=== PATIENT | male | born 1955 | race Caucasian/White ===

== ENCOUNTER 2017-02-11 09:39 | Inpatient (IN) | payer OTHER ==
[2017-02-11] MEDS ORDERED: HYDROmorphone* 1 MG/ML 1 ML SYR IV ONE (10:11)
[2017-02-11] MEDS ORDERED: NS 0.9% 1000 ML* 1,000 ML IV ONE (10:11)
[2017-02-11] MEDS ORDERED: Ondansetron INJ* 2 MG/ML VIAL IV ONE (10:11)
[2017-02-11 10:41] LABS: Hematocrit 47 % (42-52); Hemoglobin 15.5 g/dl (14.0-18.0); Mean Corpuscular HGB Conc 33 g/dl (31-36); Mean Corpuscular Hemoglobin 28 pg (27-31); Mean Corpuscular Volume 84 fL (80-94); Mean Platelet Volume 8 um3 (7.4-10.4); Red Blood Count 5.58 10^6/ul (4.0-5.4); Red Cell Distribution Width 13 % (10.5-15); White Blood Count 12.7 10^3/ul (3.5-10.8)
--- NOTE | 2017-02-11 10:45 | RAD ---
INDICATION: Left flank abdominal pain. COMPARISON: Comparison is made with a prior CT of the abdomen and pelvis from June 17, 2013. Correlation is also made with an exam from June 14, 2013. TECHNIQUE: A CT scan of the abdomen and pelvis was performed without intravenous or oral contrast. Contiguous axial sections were obtained from the lung bases through the symphysis pubis. Images were reconstructed in the coronal and sagittal planes. FINDINGS: The lung bases appear clear. No pleural effusion is present. The liver is normal in size and decreased in attenuation consistent with fatty infiltration which appears similar to the prior study. There is a solitary coarse calcification in the upper portion of the left hepatic lobe which is unchanged. No calcified gallstones are seen. The spleen is normal in size without focal abnormality on this noncontrast study. The pancreas appears to be within normal limits. The adrenal glands and kidneys are normal in size. No renal calculi or hydronephrosis is seen. No ureteral or bladder calculi are seen. The aorta is normal in caliber with mild calcific plaque present. No significant enlarged retroperitoneal lymph nodes are seen. The stomach is mildly distended. There is moderate distention of the proximal and mid small bowel. There appears to be a transition point in the anterior left lower quadrant. There is slight prominence of the adjacent mesenteric vessels. The distal small bowel and colon are nondistended. Air is present within the colon. There are multiple surgical clips present within the left mid abdomen and left lower quadrant. The appendix appears to be within normal limits. There is mild descending and sigmoid diverticulosis without evidence for diverticulitis. No free intraperitoneal air or fluid is seen. No significant focal osseous abnormality is seen. IMPRESSION: 1. MODERATE TO HIGH-GRADE PARTIAL MID SMALL BOWEL OBSTRUCTION SIMILAR IN APPEARANCE TO THE PRIOR STUDY FROM JUNE 14, 2013. 2. HEPATIC STEATOSIS.
[2017-02-11 10:53] LABS: Albumin 4.3 g/dL (3.2-5.2); BUN/Creatinine Ratio 15.9 (8-20); C Reactive Protein 4.19 mg/L (< 5.00); Calcium 9.6 mg/dL (8.6-10.3); EGFR African American 122.4 (>60); EGFR Non-African American 95.2 (>60); Globulin 3.4 g/dL (2-4); Potassium 4.1 mmol/L (3.5-5.0); Total Bilirubin 0.9 mg/dL (0.2-1.0); Total Protein 7.7 g/dL (6.4-8.9)
[2017-02-11] MEDS ORDERED: HYDROmorphone* 1 MG/ML 1 ML SYR IV PRN (14:02)
--- NOTE | 2017-02-11 15:26 | HP ---
HISTORY AND PHYSICAL: DATE OF ADMISSION: 02/11/17 CHIEF COMPLAINT: Recurrent small bowel obstruction. HISTORY OF PRESENT ILLNESS: This is a 61-year-old gentleman, who presented to the [facility] with recurrent small bowel obstruction for which he was previously admitted here in 2013, and has been admitted elsewhere a year and a half ago. The patient reports that he had a recent travel to [facility] and he had been feeling fine until yesterday about 5 p.m. He had eaten a meal of raw tuna and rice and he had subsequently had some generalized abdominal discomfort, and this became progressively worse over the evening. He developed episodes of nausea and vomiting today, but had also passed some flatus and had a bowel movement as well today. He has been having pain more in the left upper quadrant and it has been colicky in nature. He had no fevers, no chills. He came to the emergency room at [facility] and he was evaluated by our staff. He was noted to be afebrile and his white blood cell count was elevated to 12.7. He had CT scan of the abdomen performed which showed [id number] partial mid small bowel obstruction which was similar in appearance to the study he had in 2013. He was also noted to have hepatic steatosis. Based on these findings, surgical evaluation was requested. The patient reports no fevers, no chills, and no sick contacts. PAST MEDICAL HISTORY: Significant for hypertension, type 2 diabetes, hyperlipidemia, obstructive sleep apnea, gastroesophageal reflux disease. PAST SURGICAL HISTORY: He had Joi's procedure 27 years ago and 6 months later had reversal of colostomy. MEDICATIONS: 1. Pravastatin 40 mg daily. 2. Januvia 100 mg daily. 3. Prilosec 20 mg daily. 4. Irbesartan 150 mg daily. 5. Trulicity 1.5 mg subcutaneous weekly. ALLERGIES: None known. FAMILY HISTORY: Unknown as patient is adopted. SOCIAL HISTORY: He is . He is employed at [employer]. He has history of tobacco use, primarily cigars. No drug use. He occasionally drinks alcohol. REVIEW OF SYSTEMS: Constitutional: No fevers or chills. No weight loss. Respiratory: As above. No cough or shortness of breath. No history of asthma , tuberculosis or emphysema. Cardiac: As above. No chest pain shortness of breath, dyspnea on exertion. GI: As above. : No dysuria, hematuria. Endocrine: Diabetes. No thyroid problems. PHYSICAL EXAMINATION GENERAL APPEARANCE: In moderate distress. Obese male. VITAL SIGNS: Temperature 97.6, blood pressure 127/76, pulse 74, respirations 11 , O2 sat 93% on room air. Height 5 feet 8 inches, weight 240 pounds, BMI 36.5. HEENT: Head: Normocephalic, atraumatic. Sclerae anicteric and mucous membranes moist. No otorrhea. No rhinorrhea. Oropharynx clear. Dentition intact. NECK: Symmetrical. Midline trachea. No palpable lymphadenopathy or masses. LUNGS: Clear to auscultation bilaterally without wheezes, rales or rhonchi. No use of accessory muscles of respiration. HEART: Regular S1, S2. No murmurs, rubs or gallops appreciated. ABDOMEN: Noted to be obese with a scar paramedian towards the left, as well as a left lower quadrant scar, both well healed. Bowel sounds are diminished. Abdomen is soft with tenderness primarily in the left mid to upper abdomen. No discernible tympany. No tenderness to percussion. No palpable masses or hernias. EXTREMITIES: Warm without cyanosis, clubbing. There are stasis dermatitis changes in the lower extremities. There is pitting edema of the left lower extremity at the ankle. LABORATORY DATA: Sodium 132, potassium 4.1, chloride 101, carbon dioxide 25, BUN 13, creatinine 0.8, glucose 192, lactate 0.5. Total bilirubin and transaminases normal. C-reactive protein less than 5, lipase normal. WBC 12.9 , hemoglobin 15.5, hematocrit 47, platelet count 233,000. No band forms. IMAGING: CT scan of abdomen and pelvis from 02/11/17, images reviewed. Findings as above. IMPRESSION: This 61-year-old male with recurrent small bowel obstruction, now presenting with the same. He does not have surgical abdomen, will really not require any surgical intervention. PLAN/RECOMMENDATIONS: The patient will be placed on observation. He will be kept n.p.o. except for ice chips. IV hydration. Followup abdominal exams and abdominal x-rays. We will hold his oral medications at this time. [id number]/[facility] #: [id number] [facility]
[2017-02-11] MEDS: Ondansetron INJ* 2 MG/ML VIAL IV PRN ×2 (15:41→21:22)
--- NOTE | 2017-02-11 15:53 | ED ---
Jhoan Salas Alok, scribed for Ayan Rice MD on 02/11/17 at 1004 . Abdominal Pain/Male - HPI Summary HPI Summary: 61M presents to the ED with LLQ pain since 1700 yesterday afternoon. Pt states that his LLQ pain feels like cramping and is accompanied by swelling. Pt notes vomiting at 0600 this morning but denies nausea currently. Pt denies urinary symptoms. Pt states he last ate yesterday at 1200 and last had a BM at 1700 yesterday afternoon. PMHx includes h/o bowel obstruction since surgery for Diverticulitis. Pt last had a bowel obstruction one year ago and states it feels similar to now. Pt states NKDA. - History of Current Complaint Chief Complaint: EDAbdPain Stated Complaint: ABD PAIN Time Seen by Provider: 02/11/17 09:46 Hx Obtained From: Patient Onset/Duration: Lasting Days, Still Present Timing: Constant Severity Initially: Moderate Severity Currently: Moderate Pain Intensity: 9 Pain Scale Used: 0-10 Numeric Location: Discrete At: LLQ Character: Cramping Aggravating Factor(s): Nothing Alleviating Factor(s): Nothing Associated Signs And Symptoms: Positive: Nausea, Vomiting. Negative: Fever, Urinary Symptoms - Allergies/Home Medications Allergies/Adverse Reactions: Allergies Allergy/AdvReac Type Severity Reaction Status Date / Time No Known Allergies Allergy Verified 02/11/17 11:07 Home Medications: Home Medications Dulaglutide (NF) [Trulicity (NF)] 1.5 mg SUBCUT WEEKLY 02/11/17 [History Confirmed 02/11/17] Irbesartan 150 mg PO DAILY 02/11/17 [History Confirmed 02/11/17] Omeprazole CAP* [Prilosec CAP* 20 MG] 20 mg PO DAILY 02/11/17 [History Confirmed 02/11/17] Pravastatin Sodium [Pravachol] 40 mg PO DAILY 02/11/17 [History Confirmed ] Sitagliptin Phosphate [Januvia] 100 mg PO DAILY 02/11/17 [History Confirmed ] PMH/Surg Hx/FS Hx/Imm Hx Endocrine/Hematology History: Reports: Hx Diabetes Cardiovascular History: Reports: Hx Hypotension Denies: Hx Congestive Heart Failure GI History: Reports: Hx Diverticulosis, Hx Gastroesophageal Reflux Disease, Hx Obstructive Bowel, Hx Ileostomy, Other GI Disorders - CONSTIPATION, BOWEL OBSTRUCTION Denies: Hx Irritable Bowel History: Denies: Hx Renal Disease, Other Problems/Disorders Sensory History: Reports: Hx Contacts or Glasses Opthamlomology History: Reports: Hx Contacts or Glasses - Surgical History Surgery Procedure, Year, and Place: HX OF BOWEL RESCECTION AND COLOSTOMY (DT DIVERTIC) Hx Anesthesia Reactions: No Infectious Disease History: Reports: Traveled Outside the [place] in Last 30 Days - [place] Denies: Hx Hepatitis, Hx of Known/Suspected MRSA, Hx Shingles, Hx Tuberculosis, Hx Known/Suspected VRE, Hx Known/Suspected VRSA, History Other Infectious Disease - Family History Known Family History: Negative: Cardiac Disease, Hypertension, Diabetes - Social History Occupation: Employed Full-time Lives: With Family Substance Use Type: Reports: None Review of Systems Negative: Fever Positive: Abdominal Pain, Vomiting, Nausea Positive: no symptoms reported - Urinary All Other Systems Reviewed And Are Negative: Yes Physical Exam Triage Information Reviewed: Yes Vital Signs On Initial Exam: Initial Vitals Temp Pulse Resp BP Pulse Ox 97.6 F 60 22 152/85 97 02/11/17 09:41 02/11/17 09:41 02/11/17 09:41 02/11/17 09:41 02/11/17 09:41 Vital Signs Reviewed: Yes Appearance: Positive: Well-Appearing, No Pain Distress Skin: Positive: Warm, Skin Color Reflects Adequate Perfusion, Dry Head/Face: Positive: Normal Head/Face Inspection Eyes: Positive: Normal ENT: Positive: Normal ENT inspection Neck: Positive: Supple, Nontender Respiratory/Lung Sounds: Positive: Clear to Auscultation, Breath Sounds Present Cardiovascular: Positive: RRR Abdomen Description: Positive: Soft, Other: - LLQ abd tenderness Bowel Sounds: Positive: Present Musculoskeletal: Positive: Normal Neurological: Positive: Normal Psychiatric: Positive: Normal, Affect/Mood Appropriate Diagnostics - Vital Signs Vital Signs Temp Pulse Resp BP Pulse Ox 02/11/17 09:41 97.6 F 60 22 152/85 97 - Laboratory Lab Results: Lab Results 02/11/17 02/11/17 02/11/17 Range/Units 10:30 10:30 10:30 WBC 12.7 H (3.5-10.8) 10^3/ul RBC 5.58 H (4.0-5.4) 10^6/ul Hgb 15.5 (14.0-18.0) g/dl Hct 47 (42-52) % MCV 84 (80-94) fL MCH 28 (27-31) pg MCHC 33 (31-36) g/dl RDW 13 (10.5-15) % Plt Count 233 (150-450) 10^3/ul MPV 8 (7.4-10.4) um3 Neut % (Auto) 84.0 H (38-83) % Lymph % (Auto) 8.1 L (25-47) % [place] % (Auto) 6.9 (1-9) % Eos % (Auto) 0.5 (0-6) % Baso % (Auto) 0.5 (0-2) % Absolute Neuts (auto) 10.7 H (1.5-7.7) 10^3/ul Absolute Lymphs (auto) 1.0 (1.0-4.8) 10^3/ul Absolute Monos (auto) 0.9 H (0-0.8) 10^3/ul Absolute Eos (auto) 0.1 (0-0.6) 10^3/ul Absolute Basos (auto) 0.1 (0-0.2) 10^3/ul Absolute Nucleated RBC 0.01 10^3/ul Nucleated RBC % 0.1 Sodium 132 L (133-145) mmol/L Potassium 4.1 (3.5-5.0) mmol/L Chloride 101 (101-111) mmol/L Carbon Dioxide 25 (22-32) mmol/L Anion Gap 6 (2-11) mmol/L BUN 13 (6-24) mg/dL Creatinine 0.82 (0.67-1.17) mg/dL Est GFR ( Amer) 122.4 (>60) Est GFR (Non-Af Amer) 95.2 (>60) BUN/Creatinine Ratio 15.9 (8-20) Glucose 192 H (70-100) mg/dL Lactic Acid 0.5 (0.5-2.0) mmol/L Calcium 9.6 (8.6-10.3) mg/dL Total Bilirubin 0.90 (0.2-1.0) mg/dL AST 22 (13-39) U/L ALT 29 (7-52) U/L Alkaline Phosphatase 49 (34-104) U/L C-Reactive Protein 4.19 (< 5.00) mg/L Total Protein 7.7 (6.4-8.9) g/dL Albumin 4.3 (3.2-5.2) g/dL Globulin 3.4 (2-4) g/dL Albumin/Globulin Ratio 1.3 (1-3) Lipase 11 (11.0-82.0) U/L Result Diagrams: 02/11/17 10:30 02/11/17 10:30 Lab Statement: Any lab studies that have been ordered have been reviewed, and results considered in the medical decision making process. - CT abd/pel CT CT Interpretation: Positive (See Comments) - IMPRESSION: 1. MODERATE TO HIGH- GRADE PARTIAL MID SMALL BOWEL OBSTRUCTION SIMILAR IN APPEARANCE TO THE PRIOR STUDY FROM JUNE 14, 2013. 2. HEPATIC STEATOSIS. CT Interpretation Completed By: Radiologist Abdominal Pain Fem Course/Dx - Course Course Of Treatment: Mr. Masterson presented concerned that he is developing another SBO. He has had previous surgery for diverticulitis and has had several episodes of SBO requiring hospitalization but not surgery for adhesion takedown. He started with pain yesterday about 1500 while eating. He has not eaten sincee. He has been nauseated intermittently and vomited once. He has passed gas twice since but not moved his bowels. CT shows a SBO and Dr. Giraldo was contacted for admission. - Diagnoses Provider Diagnoses: Small bowel obstruction due to adhesions - Provider Notifications Discussed Care Of Patient With: Hayden Giraldo - Will admit pt Time Discussed With Above Provider: 12:22 Discharge - Discharge Plan Condition: Stable Disposition: ADMITTED TO [facility] documentation as recorded by the Jhoan crum Alok accurately reflects the service I personally performed and the decisions made by me, Ayan Rice MD.
[2017-02-11] MEDS: Pantoprazole IV* 40 MG IV SCH (16:18)
[2017-02-11] MEDS: Enoxaparin(*) 40 MG/0.4 ML SYR SUBCUT SCH (16:20)
[2017-02-11 16:26] LABS: Urine Bacteria Absent (Absent); Urine Bilirubin Negative (Negative); Urine Glucose 1+(50 mg/dL) (Negative); Urine Nitrite Negative (Negative)
[2017-02-12] MEDS: Ondansetron INJ* 2 MG/ML VIAL IV PRN (05:44)
[2017-02-12] MEDS: Ketorolac INJ* 30 MG/ML 1 ML VIAL IV PRN ×2 (05:44→15:11)
[2017-02-12 06:02] LABS: Hematocrit 46 % (42-52); Hemoglobin 15.1 g/dl (14.0-18.0); Mean Corpuscular HGB Conc 33 g/dl (31-36); Mean Corpuscular Hemoglobin 28 pg (27-31); Mean Corpuscular Volume 85 fL (80-94); Mean Platelet Volume 8 um3 (7.4-10.4); Red Blood Count 5.47 10^6/ul (4.0-5.4); Red Cell Distribution Width 13 % (10.5-15)
--- NOTE | 2017-02-12 08:03 | RAD ---
INDICATION: Small bowel obstruction COMPARISON: CT February 11, 2017 TECHNIQUE: Erect and supine views of the abdomen are submitted. FINDINGS: Bones: There are no acute bony findings. Soft tissues: The soft tissues appear normal. The psoas margins are sharp. Bowel gas pattern: There are scattered air-fluid levels with presumed fluid-filled loops of small bowel. There is air within the colon. The CT findings when taken with these findings suggest a partial small bowel obstruction. There is mild interval improvement. Calcifications: There are no abnormal calcifications. Other: None IMPRESSION: Partial small bowel obstruction with mild interval improvement.
--- NOTE | 2017-02-12 10:19 | PN ---
Progress Note - Progress Note Date of Service: 02/12/17 SOAP: Subjective:less pain,passed flatus,no nausea or vomiting Vital Signs Temp 98.0 F 02/12/17 07:49 Pulse 66 02/12/17 07:49 Resp 16 02/12/17 08:00 BP 125/77 02/12/17 07:49 Pulse Ox 99 02/12/17 07:49 Intake & Output 02/11/17 02/12/17 02/12/17 18:59 06:59 18:59 Intake Total 2083 10 Output Total 500 Balance 2083 - Weight 240 lb Intake: IV Fluids 2084 05 Oral 0 Output: Urine 500 Other: Estimated Void Medium Date of Last Bowel 02/10/17 Movement # Bowel Movements 0 # Voids 1 [] Objective:abd:hypoactive bs;soft;nondistended;minimal tenderness LUQ with deep palpation,no guarding,no rebound [] Assessment:AXR:pSBO with mild interval improvement;feels better,passed flatus [] Plan:try sips clears,continue IVF,reassess later []
[2017-02-12] MEDS: Pantoprazole IV* 40 MG IV SCH (14:20)
[2017-02-12] MEDS: Enoxaparin(*) 40 MG/0.4 ML SYR SUBCUT SCH (14:20)
[2017-02-12] MEDS ORDERED: CMCS: Melatonin (NF) 3 MG TAB PO PRN (19:44)
--- NOTE | 2017-02-13 11:49 | PN ---
Progress Note - Progress Note Date of Service: 02/13/17 SOAP: Subjective:denies pain,passed stool last evening and flatus today [] Objective:abd:+bs,soft,nondistended,nontender [] Assessment:resolved SBO [] Plan:discharge home today,low residue diet instruction provided,pt plans to seek PCP as his previous PCP moved;advised stool softener at bedtime daily;no office followup required but knows to go to ER with recurrent symptoms []
[2017-02-13 12:46] VITALS: BP 133/76
[2017-02-13] MEDS: Enoxaparin(*) 40 MG/0.4 ML SYR SUBCUT SCH (15:19)
[2017-02-13] MEDS: Pantoprazole IV* 40 MG IV SCH (15:19)
--- NOTE | 2017-02-14 16:20 | DS ---
CC: Hayden Giraldo MD at [facility]. DISCHARGE SUMMARY: DATE OF ADMISSION: 02/11/17 DATE OF DISCHARGE: 02/13/17 ATTENDING PHYSICIAN: Hayden Giraldo MD. HOSPITAL COURSE: Please refer to admission history and physical for admission details; the patient is a 61-year-old male with history of recurrent small bowel obstruction; he underwent Joi's pro cedure 27 years ago with reversal of colostomy 6 months later; on the day of admission, he reported generalized abdominal pain after eating raw tuna and rice. A CAT scan of the abdomen and pelvis re vealed [id number] grade partial small bowel obstruction similar to a prior study in 2013. The patient was starting to pass flatus shortly after admission; on 02/12/17 his abdominal x-ray showe d improvement and he was started on clear liquid diet and tolerated that well; he denied any nausea or vomiting and his pain had significantly decreased and he was passing flatus. Last evening he pa ssed a bowel movement and continues to pass flatus this morning. He was started on a low residue di et this morning and tolerated that well. He continues to pass flatus and denies any abdominal pain. PHYSICAL EXAMINATION: General: Well developed, well nourished in no acute distress, sitting in the chair, eating low-residue diet. Vital Signs: Temperature 98.6, blood pressure 130/70, pulse 80 an d regular, respiratory rate 18, O2 saturation 98% on room air. Lungs: Breath sounds bilaterally cl ear and equal. Heart: Regular rate and rhythm. No murmurs or rubs. Abdomen: Obese, soft nondiste nded, well-healed surgical scars. Nontender throughout. No guarding. Active bowel sounds. IMPRESSION: Resolved, partial small bowel obstruction. PLAN: Discharge home today. He will resume all of his usual home medications; he will continue to monitor his blood glucose as usual; the dietitian will provide instructions on a low-residue diet; t he patient is currently seeking a new primary care provider in the [place] area as his previous [place] care provider moved away and he knows he can call our office for advice; I advised him to go to the emergency room with any recurrence of symptoms and he does not need a followup visit in our [facility]. BOGDAN CARPENTER, PROGRAM SPECIALIST [id number]/[facility] #: [id number]
== END 2017-02-13 15:30 | disposition home or self-care (01) | DRG 390 ==
LOC: ED 09:39 → SSU 14:02 → OBSVTOIN 02-12 13:09
PROVIDERS: ADMIT Surgery; ATTEND Surgery
DX: K56.60 Unspecified intestinal obstruction (principal); I10 Essential (primary) hypertension; E11.9 Type 2 diabetes mellitus without complications; E78.5 Hyperlipidemia, unspecified; G47.33 Obstructive sleep apnea (adult) (pediatric); K21.9 Gastro-esophageal reflux disease without esophagitis; Z79.84 Long term (current) use of oral hypoglycemic drugs; Z79.899 Other long term (current) drug therapy
CPT/HCPCS: 36415; 74020; 74176; 80053; 81003; 81015; 83605; 83690; 85025; 86140; G0378; J1170; J1650; J1885; J2405